=== PATIENT | male | born 1995 | race Caucasian/White ===

== ENCOUNTER 2020-10-20 20:51 | Emergency (ER) | payer BC ==
[~2020-10-20] VITALS: Ht 190.5 cm; Wt 90.7 kg
[2020-10-20 20:55] VITALS: BP_SYST 156
[2020-10-20] MEDS ORDERED: LIDOCAINE/EPI 1% 1:100000 20 ML VIAL INJ ONE ×2 (21:43→21:45)
[2020-10-20] MEDS ORDERED: BACITRACIN 1 GM OINT TP ONE (21:45)
[2020-10-20] MEDS ORDERED: DIPH-TET-PERTUS Vaccine 0.5 ML VIAL (ADACEL) I.M. ONE (21:45)
[2020-10-20 23:30] VITALS: BP_SYST 156
== END 2020-10-20 23:30 | disposition home or self-care (01) ==
LOC: SED 20:51
DX: S01.111A Laceration without foreign body of right eyelid and periocular area, initial encounter (principal); S09.90XA Unspecified injury of head, initial encounter; W21.03XA Struck by baseball, initial encounter; Y93.64 Activity, baseball; Y92.89 Other specified places as the place of occurrence of the external cause; Y99.8 Other external cause status
CPT/HCPCS: 70450-TC; 76376; 90715; 99284